=== PATIENT | male | born 1970 | race African-American/Black ===

== ENCOUNTER 2018-05-27 16:58 | Emergency (ER) | payer MEDICAID, OTHER ==
[~2018-05-27] VITALS: Ht 182.9 cm; Wt 136.0 kg
[2018-05-27] MEDS ORDERED: DIPHENHYDRAMINE 50MG/ML VIAL IV ONE (23:00)
[2018-05-27] MEDS ORDERED: METHYLPREDNISOLONE SOD SUCC 125 MG/2 ML VIAL IV ONE (23:00)
[2018-05-28] MEDS ORDERED: EPINEPHRINE 1:1000 1 MG/ML AMP INJ ONE (00:45)
[2018-05-28] MEDS ORDERED: FAMOTIDINE 20MG/2ML VIAL IV ONE (00:45)
[2018-05-28 03:24] VITALS: BP 118/76
== END 2018-05-28 03:49 | disposition home or self-care (01) ==
LOC: ER 18:11
DX: T78.3XXA Angioneurotic edema, initial encounter (principal); I10 Essential (primary) hypertension; E11.9 Type 2 diabetes mellitus without complications; F17.200 Nicotine dependence, unspecified, uncomplicated; F12.10 Cannabis abuse, uncomplicated; Z91.013 Allergy to seafood
CPT/HCPCS: 96372; 96374; 96375; 99283; J1200; J2930; J3490

== ENCOUNTER 2025-04-10 17:07 | Emergency (ER) | payer SELFPAY ==
[~2025-04-10] VITALS: Ht 182.9 cm; Wt 129.0 kg
[2025-04-10 17:12] VITALS: O2SAT 97
[2025-04-10 19:35] VITALS: BP 101/56; PULSE 120; RESP 18; TEMP 36.9; O2SAT 98
== END 2025-04-10 19:35 | disposition home or self-care (01) ==
LOC: ER 17:07
DX: S83.90XA Sprain of unspecified site of unspecified knee, initial encounter (principal); I10 Essential (primary) hypertension; E11.9 Type 2 diabetes mellitus without complications; Z91.013 Allergy to seafood; X58.XXXA Exposure to other specified factors, initial encounter; Y93.89 Activity, other specified; Y92.89 Other specified places as the place of occurrence of the external cause; Y99.9 Unspecified external cause status
CPT/HCPCS: 73562; 99283

== ENCOUNTER 2025-04-12 05:06 | Inpatient (IN) | payer SELFPAY ==
[2025-04-12] VITALS (88 sets, daily range): BP systolic 58–176; BP diastolic 24–146; PULSE 78–151; RESP 0–28; TEMP 34.3–35.2; O2SAT 94–100
[~2025-04-12] VITALS: Ht 185.4 cm; Wt 100.7 kg
[2025-04-12] MEDS ORDERED: NOREPINEPHRINE 8MG/250ML PMX 250 ML IV ONE ×3 (05:11→09:26)
[2025-04-12] MEDS: NOREPINEPHRINE 8MG/250ML PMX 250 ML IV ONE (05:19)
[2025-04-12] MEDS: SODIUM CHLORIDE 0.9% 1,000 ML IV ONE ×2 (05:19→10:58)
[2025-04-12] MEDS: ASPIRIN 300MG SUPP PR ONE (05:25)
[2025-04-12] MEDS ORDERED: PROPOFOL 10MG/ML 100ML 100 ML IV PRN (05:30)
[2025-04-12] MEDS ORDERED: ACETAMINOPHEN 650MG SUPP PR PRN ×3 (05:30→10:15)
[2025-04-12] MEDS ORDERED: ACETAMINOPHEN 650MG/20.3ML UDC NG PRN (05:30)
[2025-04-12] MEDS ORDERED: FENTANYL 2500MCG/250ML PMX 250 ML IV PRN ×2 (05:30→05:45)
[2025-04-12 05:47] LABS: HEMATOCRIT. 33.1 % (42.0-52.0); HEMOGLOBIN. 9.4 g/dL (14.0-18.0); MEAN PLATELET VOLUME 12.5 fl (7.4-10.4); RED BLOOD CELL COUNT 2.78 mill/uL (4.7-6.1); RED CELL DISTRIBUTION WIDTH 19.0 % (11.6-14.6)
[2025-04-12 06:01] LABS: CREATININE 2.0 mg/dL (0.6-1.3); UREA NITROGEN BLOOD 42 mg/dL (9-23)
[2025-04-12 06:03] LABS: ASPARTATE AMINOTRANSFERASE 235 IU/L (<34); BILIRUBIN DIRECT 3.4 mg/dL (<=3.0); BILIRUBIN TOTAL 4.1 mg/dL (0.1-1.0); PLATELET 41 x1000/uL (130-400); PROTEIN TOTAL 5.6 g/dL (6.0-8.3); TROPONIN I HIGH SENSITIVITY 15 ng/L (3.0-53)
[2025-04-12] MEDS ORDERED: EPINEPHRINE 5 MG in SODIUM CHLORIDE 0.9% 245 ML IV PRN (06:15)
[2025-04-12 06:27] LABS: PHOSPHORUS 11.2 mg/dL (2.5-4.9)
[2025-04-12] MEDS: CALCIUM GLUCONATE 100MG/ML 10ML VIAL IV ONE (06:30)
[2025-04-12 06:46] LABS: INR 1.5
[2025-04-12 06:47] LABS: BG BASE EXCESS -30.9 mmol/L (-2.0-3.0); BG CARBOXYHEMOGLOBIN 0.8 % (0.5-1.5); BG DEOXYHEMOGLOBIN 1.8 % (0.0-5.0); BG FRACTION INSPIRED OXYGEN 100; BG HCO3 ACT 5.7 mmol/L (21.0-28.0); BG METHEMOGLOBIN 0.1 % (0.5-1.5); BG OXYGEN SATURATION 98.2 % (94.0-98.0); BG OXYHEMOGLOBIN 97.3 % (94.0-98.0); BG PCO2 58.3 mmHg (35.0-48.0); BG PEEP (cmH2O) 5.0 cmH2O; BG PH 6.608 (7.350-7.450); BG PO2 216.5 mmHg (83.0-108.0); BG SAMPLE SITE RIGHT BRACHIAL; BG TIDAL VOLUME(mL) 500.0 mL; BG TOTAL HEMOGLOBIN 9.0 g/dL (13.5-17.5); BG VENT MODE VENT - AC; BG VENT RATE 16.0 set
[2025-04-12] MEDS: SODIUM BICARBONATE 8.4% 50MEQ/50ML SYR IV ONE (06:58)
[2025-04-12] MEDS: PIPERACILLIN/TAZO 3.375G/50ML 50 ML IV ONE (07:16)
[2025-04-12] MEDS: SODIUM CHLORIDE 0.9% (SEPSIS BOLUS) IV ONE (07:18)
[2025-04-12] MEDS ORDERED: DEXTROSE 50% WATER 50ML SYRINGE IV PRN ×3 (07:45→18:30)
[2025-04-12] MEDS ORDERED: DEXT 5%/0.9% NACL 1,000 ML IV SCH (07:45)
[2025-04-12] MEDS ORDERED: SODIUM PHOSPHATE 15 MMOL in SODIUM CHLORIDE 0.9% 245 ML IV PRN (07:45)
[2025-04-12] MEDS ORDERED: MAGNESIUM 2 G PREMIX 50 ML IV PRN ×2 (07:45→18:30)
[2025-04-12] MEDS ORDERED: SODIUM CHLORIDE 0.9% 1,000 ML IV SCH (07:45)
[2025-04-12] MEDS ORDERED: POTASSIUM CHLORIDE 40 MEQ in SODIUM CHLORIDE 0.9% 230 ML IV PRN (07:45)
[2025-04-12] MEDS ORDERED: INSULIN REGULAR (DRIP) 100 UNITS in SODIUM CHLORIDE 0.9% 99 ML IV SCH (07:45)
[2025-04-12] MEDS ORDERED: BLOOD SUGAR DIAGNOSTIC STRIP TEST PRN ×2 (07:45→18:30)
[2025-04-12 07:49] LABS: BAND% 9.0 % (1.0-6.0); LYMPHOCYTES % MANUAL 12.0 % (20.0-50.0); METAMYELOCYTES % 3.0 % (0-0); MONOCYTES % MANUAL 2.0 % (2.0-8.0); NEUTROPHILS % MANUAL 74.0 % (45.0-75.0); NUCLEATED RED BLOOD CELLS 1 /100 WBC; PLATELET ESTIMATE DECREASED
[2025-04-12] MEDS ORDERED: CALCIUM GLUCONATE 100MG/ML 10ML VIAL IV NR (08:00)
[2025-04-12 08:05] LABS: CLARITY URINE TURBID (CLEAR); COLOR URINE ORANGE (YELLOW); GLUCOSE URINE NEGATIVE (NEGATIVE); KETONES URINE TRACE (NEGATIVE); LEUKOCYTE ESTERASE URINE 1+ (NEGATIVE); NITRITE URINE POSITIVE (NEGATIVE); OCCULT BLOOD URINE NEGATIVE (NEGATIVE); PH URINE 5.0 (4.5-8.0); PROTEIN URINE 2+ (NEGATIVE); SPECIFIC GRAVITY URINE 1.028 (1.005-1.030); UROBILINOGEN URINE 2.0 E.U./dL (0.2-1.0)
[2025-04-12 08:10] LABS: TROPONIN I HIGH SENSITIVITY 78 ng/L (3.0-53)
[2025-04-12] MEDS: SODIUM BICARBONATE 100 MEQ in DEXTROSE 5% WATER 900 ML IV SCH (08:17)
[2025-04-12 08:19] LABS: BACTERIA URINE 3+; RBC URINE 0-2 /hpf (0-2); SQUAMOUS EPITHELIAL CELL URINE 1+ /lpf (RARE/1+); YEAST URINE NONE SEEN
[2025-04-12] MEDS: EPINEPHRINE 5 MG in SODIUM CHLORIDE 0.9% 245 ML IV PRN (08:19)
[2025-04-12 08:39] LABS: CREATININE 2.2 mg/dL (0.6-1.3)
[2025-04-12 08:43] LABS: *AMPHETAMINES SCREEN URINE NEGATIVE (NEGATIVE); *BARBITURATES SCREEN URINE NEGATIVE (NEGATIVE); *BENZODIAZEPINES SCREEN URINE NEGATIVE (NEGATIVE); *COCAINE SCREEN URINE NEGATIVE (NEGATIVE); CANNABINOID URINE SCREEN NEGATIVE (NEGATIVE); ECSTASY MDMA SCREEN URINE NEGATIVE (NEGATIVE); METHADONE URINE SCREEN NEGATIVE (NEGATIVE); OPIATES URINE SCREEN NEGATIVE (NEGATIVE); PHENCYCLIDINE URINE SCREEN NEGATIVE (NEGATIVE)
[2025-04-12] MEDS: VANCOMYCIN 1G PREMIX 200 ML IV ONE (08:54)
[2025-04-12] MEDS: INSULIN REGULAR (HUMULIN R) 1000UNITS/10ML VIAL IV ONE (08:54)
[2025-04-12 09:09] LABS: UREA NITROGEN BLOOD 45 mg/dL (9-23)
[2025-04-12 09:11] LABS: PHOSPHORUS 13.2 mg/dL (2.5-4.9); TROPONIN I HIGH SENSITIVITY 146 ng/L (3.0-53)
[2025-04-12] MEDS: SODIUM CHLORIDE 0.45% 1,000 ML IV SCH (09:30)
[2025-04-12] MEDS ORDERED: PHENYLEPHRINE 100 MG in DEXT 5% WATER 240 ML IV PRN (09:30)
[2025-04-12 09:34] LABS: BG BASE EXCESS -18.6 mmol/L (-2.0-3.0); BG FRACTION INSPIRED OXYGEN 60; BG HCO3 ACT 11.4 mmol/L (21.0-28.0); BG PCO2 41.8 mmHg (35.0-48.0); BG PEEP (cmH2O) 5.0 cmH2O; BG PH 7.052 (7.350-7.450); BG PO2 106.6 mmHg (83.0-108.0); BG SAMPLE SITE RIGHT BRACHIAL; BG TIDAL VOLUME(mL) 500.0 mL; BG TOTAL HEMOGLOBIN 0.0 g/dL (13.5-17.5); BG VENT MODE VENT - AC; BG VENT RATE 28.0 set
[2025-04-12] MEDS: BLOOD SUGAR DIAGNOSTIC STRIP TEST SCH ×2 (09:45→18:59)
[2025-04-12] MEDS: KCL 20MEQ/100ML PREMIX 100 ML IV PRN ×2 (09:56→18:38)
[2025-04-12] MEDS ORDERED: ACETAMINOPHEN 325MG TABLET PO PRN ×2 (10:15)
[2025-04-12] MEDS ORDERED: PHENYLEPHRINE 50MG/250ML PMX 250 ML IV PRN (10:15)
[2025-04-12] MEDS ORDERED: IPRATROPIUM/ALBUTEROL 0.5-3(2.5)MG/3ML NEB HHN PRN (10:15)
[2025-04-12] MEDS ORDERED: ONDANSETRON HCL 4MG/2ML INJ IV PRN (10:15)
[2025-04-12] MEDS ORDERED: IOHEXOL-350 100 ML BOTTLE ONE (10:26)
[2025-04-12] MEDS ORDERED: VASOPRESSIN 20 UNIT in SODIUM CHLORIDE 0.9% 99 ML IV PRN (10:30)
[2025-04-12] MEDS ORDERED: AMIODARONE 360MG/200ML 200 ML IV SCH ×2 (10:45→11:00)
[2025-04-12] MEDS ORDERED: AMIODARONE 150MG/100ML D5W 100 ML IV ONE (10:45)
[2025-04-12] MEDS ORDERED: FENTANYL 2500MCG/250ML PMX 250 ML IV ONE (10:45)
[2025-04-12] MEDS: KCL 20MEQ/100ML PREMIX 100 ML IV SCH (11:21)
[2025-04-12] MEDS: AMIODARONE 150MG/100ML D5W 100 ML IV NR (11:29)
[2025-04-12] MEDS: PANTOPRAZOLE SODIUM 40 MG/VIAL IV SCH (11:43)
[2025-04-12] MEDS: VANCOMYCIN 1GM/200ML PMX (BAXTER) IV SCH (11:43)
[2025-04-12 11:47] LABS: TRIGLYCERIDE 419 mg/dL (0-150)
[2025-04-12 11:48] LABS: LDL CHOLESTEROL 43 mg/dL (5-100)
[2025-04-12] MEDS: AMIODARONE HCL 900 MG in DEXT 5% WATER 500 ML IV SCH (11:49)
[2025-04-12] MEDS: PHENYLEPHRINE 100 MG in DEXT 5% WATER 240 ML IV PRN (11:50)
[2025-04-12] MEDS: VASOPRESSIN 20 UNIT in SODIUM CHLORIDE 0.9% 99 ML IV PRN (12:04)
[2025-04-12 12:12] LABS: CREATININE 2.1 mg/dL (0.6-1.3)
[2025-04-12 12:12] LABS: BG BASE EXCESS -16.3 mmol/L (-2.0-3.0); BG CARBOXYHEMOGLOBIN 1.2 % (0.5-1.5); BG DEOXYHEMOGLOBIN 2.9 % (0.0-5.0); BG FRACTION INSPIRED OXYGEN 60; BG HCO3 ACT 11.6 mmol/L (21.0-28.0); BG METHEMOGLOBIN 0.3 % (0.5-1.5); BG OXYGEN SATURATION 97.1 % (94.0-98.0); BG OXYHEMOGLOBIN 95.6 % (94.0-98.0); BG PCO2 36.4 mmHg (35.0-48.0); BG PEEP (cmH2O) 5.0 cmH2O; BG PH 7.121 (7.350-7.450); BG PO2 120.3 mmHg (83.0-108.0); BG SAMPLE SITE LEFT RADIAL; BG TIDAL VOLUME(mL) 500.0 mL; BG TOTAL HEMOGLOBIN 6.2 g/dL (13.5-17.5); BG VENT MODE VENT - AC; BG VENT RATE 28.0 set
[2025-04-12 12:13] LABS: UREA NITROGEN BLOOD 46 mg/dL (9-23)
[2025-04-12 12:34] LABS: PHOSPHORUS 10.7 mg/dL (2.5-4.9)
[2025-04-12 13:05] LABS: BASOPHILS % 0.4 % (0.0-2.0); EOSINOPHILS % 3.3 % (0.0-5.0); HEMATOCRIT. 22.4 % (42.0-52.0); LYMPHOCYTES % 10.7 % (20.0-50.0); MEAN PLATELET VOLUME 11.2 fl (7.4-10.4); MONOCYTES % 2.0 % (2.0-8.0); NEUTROPHILS % 83.6 % (40.0-76.0); RED BLOOD CELL COUNT 2.12 mill/uL (4.7-6.1); RED CELL DISTRIBUTION WIDTH 17.3 % (11.6-14.6)
[2025-04-12 13:11] LABS: INFLUENZA TYPE A Presumptive Negative (Pres. Neg.); INFLUENZA TYPE B Presumptive Negative (Pres. Neg.)
[2025-04-12 13:12] LABS: RESPIRATORY SYNCYTIAL VIRUS Not Detected (Not Detectd)
[2025-04-12 13:20] LABS: HEMOGLOBIN. 7.1 g/dL (14.0-18.0)
[2025-04-12 13:21] LABS: PLATELET 38 x1000/uL (130-400)
[2025-04-12] MEDS ORDERED: POTASSIUM CHLORIDE 20 MEQ in DEXT 5% WATER 90 ML IV ONE (13:30)
[2025-04-12] MEDS: NOREPINEPHRINE 32 MG in DEXT 5% WATER 218 ML IV PRN (13:32)
[2025-04-12] MEDS: PIPERACILLIN/TAZO 3.375G/50ML 50 ML IV SCH (13:36)
[2025-04-12] MEDS: KCL 20MEQ/100ML PREMIX 100 ML IV ONE (13:37)
[2025-04-12 14:20] LABS: HEPATITIS A AB IGM NEGATIVE (Negative)
[2025-04-12 14:21] LABS: HEPATITIS C AB NON REACTIVE (Neg) (Negative)
[2025-04-12] MEDS: POTASSIUM CHLORIDE 20MEQ TABLET SR PO NR (14:38)
[2025-04-12] MEDS: LANTHANUM CARBONATE 500MG CHEW TABLET PO SCH (14:38)
[2025-04-12 15:30] LABS: HEPATITIS B CORE AB IGM NEGATIVE (Negative)
[2025-04-12 17:28] LABS: BASOPHILS % 1.0 % (0.0-2.0); EOSINOPHILS % 4.9 % (0.0-5.0); HEMATOCRIT. 28.2 % (42.0-52.0); HEMOGLOBIN. 8.7 g/dL (14.0-18.0); LYMPHOCYTES % 11.0 % (20.0-50.0); MEAN PLATELET VOLUME 9.7 fl (7.4-10.4); MONOCYTES % 1.3 % (2.0-8.0); NEUTROPHILS % 81.8 % (40.0-76.0); RED BLOOD CELL COUNT 2.62 mill/uL (4.7-6.1); RED CELL DISTRIBUTION WIDTH 17.8 % (11.6-14.6)
[2025-04-12 17:33] LABS: PLATELET 29 x1000/uL (130-400)
[2025-04-12 17:46] LABS: CREATININE 2.3 mg/dL (0.6-1.3)
[2025-04-12 17:47] LABS: UREA NITROGEN BLOOD 48.0 mg/dL (9-23)
[2025-04-12 18:01] LABS: TROPONIN I HIGH SENSITIVITY 535.0 ng/L (3.0-53)
[2025-04-12] MEDS: CALCIUM GLUCONATE 1GM PREMIX 50 ML IV NR (18:06)
[2025-04-12] MEDS ORDERED: SODIUM PHOSPHATE 15 MMOL in SODIUM CHLORIDE 0.9% 250 ML IV PRN (18:30)
[2025-04-12] MEDS ORDERED: POTASSIUM CHLORIDE 40 MEQ in SODIUM CHLORIDE 0.9% 250 ML IV PRN (18:30)
[2025-04-12] MEDS: DEXT 5%/0.9% NACL 1,000 ML IV SCH (18:30)
[2025-04-12] MEDS: SODIUM BICARBONATE 8.4% 50MEQ/50ML SYR IV SCH (18:38)
[2025-04-12] MEDS: INSULIN REGULAR 100U/100ML PMX 100 ML IV SCH (18:39)
[2025-04-12] MEDS: SODIUM CHLORIDE 0.9% 1,000 ML IV SCH (18:40)
[2025-04-12 19:03] LABS: BG BASE EXCESS -23.4 mmol/L (-2.0-3.0); BG CARBOXYHEMOGLOBIN 0.5 % (0.5-1.5); BG DEOXYHEMOGLOBIN 1.5 % (0.0-5.0); BG FRACTION INSPIRED OXYGEN 100; BG HCO3 ACT 7.8 mmol/L (21.0-28.0); BG METHEMOGLOBIN 0.3 % (0.5-1.5); BG OXYGEN SATURATION 98.5 % (94.0-98.0); BG OXYHEMOGLOBIN 97.7 % (94.0-98.0); BG PCO2 38.1 mmHg (35.0-48.0); BG PEEP (cmH2O) 5.0 cmH2O; BG PH 6.928 (7.350-7.450); BG PO2 159.0 mmHg (83.0-108.0); BG SAMPLE SITE LEFT RADIAL; BG TIDAL VOLUME(mL) 500.0 mL; BG TOTAL HEMOGLOBIN 9.3 g/dL (13.5-17.5); BG VENT MODE VENT - AC; BG VENT RATE 28.0 set
[2025-04-12] MEDS ORDERED: SODIUM BICARBONATE 8.4% 50MEQ/50ML SYR IV SCH (19:30)
[2025-04-12] MEDS: SODIUM BICARBONATE 8.4% 50MEQ/50ML SYR IV NR (19:59)
[2025-04-12] MEDS: MEROPENEM 1G/100ML 100 ML IV SCH (19:59)
[2025-04-12] MEDS: IPRATROPIUM BROMIDE (0.02%) 0.5MG/2.5ML NEB HHN SCH (20:58)
[2025-04-13] VITALS (44 sets, daily range): BP systolic 71–125; BP diastolic 35–97; PULSE 41–94; RESP 0–28; TEMP 36.00288–36.1; O2SAT 0–100
[2025-04-13 00:25] LABS: BG BASE EXCESS -23.7 mmol/L (-2.0-3.0); BG CARBOXYHEMOGLOBIN 0.7 % (0.5-1.5); BG DEOXYHEMOGLOBIN 2.8 % (0.0-5.0); BG FRACTION INSPIRED OXYGEN 100; BG HCO3 ACT 7.4 mmol/L (21.0-28.0); BG METHEMOGLOBIN 0.3 % (0.5-1.5); BG OXYGEN SATURATION 97.2 % (94.0-98.0); BG OXYHEMOGLOBIN 96.2 % (94.0-98.0); BG PCO2 36.0 mmHg (35.0-48.0); BG PEEP (cmH2O) 5.0 cmH2O; BG PH 6.929 (7.350-7.450); BG PO2 122.1 mmHg (83.0-108.0); BG SAMPLE SITE RIGHT RADIAL; BG TIDAL VOLUME(mL) 500.0 mL; BG TOTAL HEMOGLOBIN 8.8 g/dL (13.5-17.5); BG VENT MODE VENT - AC; BG VENT RATE 28.0 set
[2025-04-13] MEDS: SODIUM BICARBONATE 8.4% 50MEQ/50ML SYR IV SCH (00:49)
[2025-04-13 01:08] LABS: CREATININE 2.3 mg/dL (0.6-1.3); UREA NITROGEN BLOOD 51 mg/dL (9-23)
[2025-04-13 01:12] LABS: PHOSPHORUS 10.0 mg/dL (2.5-4.9)
[2025-04-13 01:14] LABS: BASOPHILS % 0.7 % (0.0-2.0); EOSINOPHILS % 7.4 % (0.0-5.0); HEMATOCRIT. 25.2 % (42.0-52.0); HEMOGLOBIN. 8.2 g/dL (14.0-18.0); LYMPHOCYTES % 17.7 % (20.0-50.0); MEAN PLATELET VOLUME 11.8 fl (7.4-10.4); MONOCYTES % 0.7 % (2.0-8.0); NEUTROPHILS % 73.5 % (40.0-76.0); RED BLOOD CELL COUNT 2.43 mill/uL (4.7-6.1); RED CELL DISTRIBUTION WIDTH 17.5 % (11.6-14.6)
[2025-04-13 01:23] LABS: PLATELET 14 x1000/uL (130-400)
[2025-04-13] MEDS: SODIUM BICARBONATE 100 MEQ in DEXTROSE 5% WATER 900 ML IV SCH (01:37)
[2025-04-13 02:36] LABS: INR 2.1
[2025-04-13] MEDS: EPINEPHRINE 5 MG in SODIUM CHLORIDE 0.9% 245 ML IV PRN (04:47)
[2025-04-13 05:34] LABS: HEMATOCRIT. 21.3 % (42.0-52.0); MEAN PLATELET VOLUME 7.6 fl (7.4-10.4); RED BLOOD CELL COUNT 1.99 mill/uL (4.7-6.1); RED CELL DISTRIBUTION WIDTH 18.1 % (11.6-14.6)
[2025-04-13 05:49] LABS: CREATININE 2.6 mg/dL (0.6-1.3)
[2025-04-13 05:50] LABS: UREA NITROGEN BLOOD 52 mg/dL (9-23)
[2025-04-13 05:51] LABS: TRIGLYCERIDE 317 mg/dL (0-150)
[2025-04-13 05:52] LABS: LDL CHOLESTEROL 44 mg/dL (5-100)
[2025-04-13 05:55] LABS: T4 FREE 0.47 ng/dL (0.89-1.76)
[2025-04-13 05:59] LABS: PHOSPHORUS 10.9 mg/dL (2.5-4.9)
[2025-04-13 06:03] LABS: TROPONIN I HIGH SENSITIVITY 1378 ng/L (3.0-53)
[2025-04-13 06:25] LABS: HEMOGLOBIN. 6.7 g/dL (14.0-18.0)
[2025-04-13] MEDS: SODIUM BICARBONATE 150 MEQ in DEXTROSE 5% WATER 850 ML IV SCH (08:51)
[2025-04-13 09:43] LABS: BILIRUBIN DIRECT 4.1 mg/dL (<=3.0); BILIRUBIN TOTAL 4.9 mg/dL (0.1-1.0)
[2025-04-13 10:33] LABS: PROTEIN TOTAL 3.6 g/dL (6.0-8.3)
[2025-04-13 10:34] LABS: ASPARTATE AMINOTRANSFERASE 11679 IU/L (<34)
[2025-04-13 11:20] LABS: BAND% 32.0 % (1.0-6.0); LYMPHOCYTES % MANUAL 20.0 % (20.0-50.0); MONOCYTES % MANUAL 5.0 % (2.0-8.0); NEUTROPHILS % MANUAL 43.0 % (45.0-75.0); NUCLEATED RED BLOOD CELLS 1 /100 WBC; PLATELET ESTIMATE MARKEDLY DECREASED
[2025-04-13 11:23] LABS: PLATELET 41 x1000/uL (130-400)
== END 2025-04-13 09:58 | DRG 720 ==
LOC: ER 05:06 → EDBEDREQ 08:04 → CVICU 08:43 → EDBEDREQTM 08:48 → EDBEDREQ 08:48 → ENRESERV 08:55
PROVIDERS: ADMIT Internal Medicine; ATTEND Internal Medicine
PROC: 0BH17EZ Insertion of Endotracheal Airway into Trachea, Via Natural or Artificial Opening (ICD-10-PCS; principal; 2025-04-12)
PROC: 5A12012 Performance of Cardiac Output, Single, Manual (ICD-10-PCS; 2025-04-12)
PROC: 5A1945Z Respiratory Ventilation, 24-96 Consecutive Hours (ICD-10-PCS; 2025-04-12)
PROC: 30233N1 Transfusion of Nonautologous Red Blood Cells into Peripheral Vein, Percutaneous Approach (ICD-10-PCS; 2025-04-12)
PROC: 30233K1 Transfusion of Nonautologous Frozen Plasma into Peripheral Vein, Percutaneous Approach (ICD-10-PCS; 2025-04-13)
PROC: 30233R1 Transfusion of Nonautologous Platelets into Peripheral Vein, Percutaneous Approach (ICD-10-PCS; 2025-04-13)
DX: A41.50 Gram-negative sepsis, unspecified (principal); I46.9 Cardiac arrest, cause unspecified; D65 Disseminated intravascular coagulation [defibrination syndrome]; K72.00 Acute and subacute hepatic failure without coma; G93.1 Anoxic brain damage, not elsewhere classified; N17.0 Acute kidney failure with tubular necrosis; Z66 Do not resuscitate; G93.6 Cerebral edema; E11.10 Type 2 diabetes mellitus with ketoacidosis without coma; G93.41 Metabolic encephalopathy; J96.01 Acute respiratory failure with hypoxia; R57.0 Cardiogenic shock; R65.21 Severe sepsis with septic shock; D61.818 Other pancytopenia; D68.9 Coagulation defect, unspecified; E83.39 Other disorders of phosphorus metabolism; E88.09 Other disorders of plasma-protein metabolism, not elsewhere classified; D53.9 Nutritional anemia, unspecified; E83.52 Hypercalcemia; E87.1 Hypo-osmolality and hyponatremia; E87.6 Hypokalemia; I48.91 Unspecified atrial fibrillation; N39.0 Urinary tract infection, site not specified; I21.4 Non-ST elevation (NSTEMI) myocardial infarction; E03.9 Hypothyroidism, unspecified; Z91.199 Patient's noncompliance with other medical treatment and regimen due to unspecified reason; K76.0 Fatty (change of) liver, not elsewhere classified; M86.8X0 Other osteomyelitis, multiple sites; E11.36 Type 2 diabetes mellitus with diabetic cataract; I10 Essential (primary) hypertension; F17.210 Nicotine dependence, cigarettes, uncomplicated; J98.11 Atelectasis; I45.9 Conduction disorder, unspecified; F10.10 Alcohol abuse, uncomplicated; Y90.0 Blood alcohol level of less than 20 mg/100 ml; E83.42 Hypomagnesemia; R34 Anuria and oliguria; Z91.148 Patient's other noncompliance with medication regimen for other reason; Z91.013 Allergy to seafood; Z79.4 Long term (current) use of insulin
CPT/HCPCS: 31500; 31720; 36415; 36556; 36600; 71045; 71275; 74174; 76770; 80048; 80051; 80061; 80076; 80202; 80305; 80320; 81003; 82010; 82040; 82270; 82330; 82375; 82533; 82550; 82728; 82805; 82962; 83036; 83540; 83550; 83605; 83735; 83880; 83930; 84100; 84145; 84155; 84165; 84439; 84443; 84484; 85025; 85044; 85362; 85379; 85384; 86705; 86709; 86850; 86900; 86920; 86927; 87070; 87077; 87186; 87340; 87420; 87804; 92950; 93005; 93306; 93970; 94002; 94003; 94070; 94640; 94664; 99291; 99292; J0282; J0612; J1815; J2185; J2371; J2470; J2543; J3010; J3373; J3480; J3490; J7030; J7042; J7050; J7060; J7070; P9016; P9017; P9034; Q9967; G0480